=== PATIENT | male | born 1980 | race Caucasian/White ===

== ENCOUNTER 2017-04-10 16:00 | Emergency (ER) | payer MEDICAID ==
[2017-04-10] MEDS: LORAZEPAM 2 MG INJ IV (16:28)
[2017-04-10] MEDS: SOD CHLORIDE 0.9% 1,000 ML IV (16:28)
[2017-04-10] MEDS: THIAMINE 100 MG TAB PO (17:01)
[2017-04-10] MEDS: FOLIC ACID 1 MG TAB PO (17:01)
[2017-04-10 17:12] LABS: ANION GAP 27 (8-16); BLOOD UREA NITROGEN 21 mg/dl (7-20); CALCIUM 9.6 mg/dl (8.4-10.2); CARBON DIOXIDE 16 mmol/L (21-31); CHLORIDE 103 mmol/L (97-110); CREATININE 1.14 mg/dl (0.61-1.24); GLUCOSE 106 mg/dl (70-220); POTASSIUM 3.1 mmol/L (3.5-5.1); SODIUM 143 mmol/L (135-144)
[2017-04-10] MEDS: DEXTROSE 5%-0.45% NACL 500 ML BAG IV (17:30)
[2017-04-10] MEDS: POTASSIUM CHLORIDE (SR) 20 MEQ TAB PO (18:37)
== END 2017-04-10 19:17 | disposition home or self-care (01) ==
LOC: E/R 16:00
DX: E87.2 Acidosis (principal); E87.6 Hypokalemia; E86.0 Dehydration
CPT/HCPCS: 36415; 80048; 93005; 96374; 99284-25